=== PATIENT | female | born 1985 | race American Indian/Alaskan Native ===

== ENCOUNTER 2017-01-20 07:31 | Emergency (ER) | payer MEDICAID ==
--- NOTE | 2017-01-20 08:45 | Emergency Department Report ---
- General Chief complaint: Extremity Injury, Lower Stated complaint: ANKIE PAIN Time Seen by Provider: 01/20/17 08:45 Source: patient Mode of arrival: Ambulatory Limitations: No Limitations - History of Present Illness MD complaint: rash - Related Data Allergies Allergy/AdvReac Type Severity Reaction Status Date / Time iodine Allergy Anaphylaxis Verified 01/20/17 08:11 shellfish derived Allergy Anaphylaxis Verified 01/20/17 08:11 Abscess [facility]il [facility] Chief Complaint: Extremity Injury, Lower Stated Complaint: ANKIE PAIN Time Seen by Provider: 01/20/17 08:45 Allergies/Adverse Reactions: Allergies Allergy/AdvReac Type Severity Reaction Status Date / Time iodine Allergy Anaphylaxis Verified 01/20/17 08:11 shellfish derived Allergy Anaphylaxis Verified 01/20/17 08:11 ED Review of Systems ROS: Stated complaint: ANKIE PAIN Other details as noted in HPI ED Past Medical Hx - Past Medical History Previous Medical History?: No - Surgical History Past Surgical History?: Yes Additional Surgical History: X 2 - Social History Smoking Status: Current Every Day Smoker Substance Use Type: None ED Physical Exam - General Limitations: No Limitations Critical care attestation.: If time is entered above; I have spent that time in minutes in the direct care of this critically ill patient, excluding procedure time. ED Disposition Condition: Stable
[2017-01-20] MEDS ORDERED: MOTRIN PO ONE (11:05)
--- NOTE | 2017-01-20 11:25 | Emergency Department Report ---
ED Lower Extremity HPI - General Chief Complaint: Extremity Injury, Lower Stated Complaint: ANKIE PAIN Time Seen by Provider: 01/20/17 08:45 Source: patient Mode of arrival: Ambulatory Limitations: No Limitations - History of Present Illness Initial Comments: 31-year-old female past medical history none presents with complaint of right ankle pain and swelling status post trip and fall. Patient denies any lacerations no other injury sustained difficulty walking due to pain and right ankle MD Complaint: ankle injury, foot injury Onset/Timin -: days(s) Injury: Ankle: Right, Foot: Right Type of Injury: inversion Place: home Severity: moderate Severity scale (0 -10): 6 Improves With: immobilization Worsens With: weight bearing, movement Context: fall Associated Symptoms: snap/pop sensation, swelling, able to partially bear weight - Related Data Allergies Allergy/AdvReac Type Severity Reaction Status Date / Time iodine Allergy Anaphylaxis Verified 01/20/17 08:11 shellfish derived Allergy Anaphylaxis Verified 01/20/17 08:11 ED Review of Systems ROS: Stated complaint: ANKIE PAIN Other details as noted in HPI Constitutional: denies: chills, fever Eyes: denies: eye pain, eye discharge, vision change ENT: denies: ear pain, throat pain Respiratory: denies: cough, shortness of breath, wheezing Cardiovascular: denies: chest pain, palpitations Endocrine: no symptoms reported Gastrointestinal: denies: abdominal pain, nausea, diarrhea Genitourinary: denies: urgency, dysuria, discharge Musculoskeletal: denies: back pain, joint swelling, arthralgia Skin: denies: rash, lesions Neurological: denies: headache, weakness, paresthesias Psychiatric: denies: anxiety, depression Hematological/Lymphatic: denies: easy bleeding, easy bruising ED Past Medical Hx - Past Medical History Previous Medical History?: No - Surgical History Past Surgical History?: Yes Additional Surgical History: X 2 - Social History Smoking Status: Current Every Day Smoker Substance Use Type: None ED Physical Exam - General Limitations: No Limitations General appearance: alert, in no apparent distress - Head Head exam: Present: atraumatic, normocephalic - Eye Eye exam: Present: normal appearance, PERRL, EOMI - ENT ENT exam: Present: mucous membranes moist - Neck Neck exam: Present: normal inspection - Respiratory Respiratory exam: Present: normal lung sounds bilaterally. Absent: respiratory distress - Cardiovascular Cardiovascular Exam: Present: regular rate, normal rhythm. Absent: systolic murmur, diastolic murmur, rubs, gallop - GI/Abdominal GI/Abdominal exam: Present: soft, normal bowel sounds - Extremities Exam Extremities exam: Present: normal inspection - Expanded Lower Extremity Exam Right Hip exam: Present: normal inspection, full ROM Upper Leg exam: Present: normal inspection, full ROM Knee exam: Present: normal inspection, full ROM Lower Leg exam: Present: normal inspection, full ROM Ankle exam: Present: full ROM, tenderness, swelling Foot/Toe exam: Present: normal inspection, full ROM, tenderness at base of 5th metatarsal Neuro vascular tendon exam: Present: no vascular compromise Gait: Positive: antalgic 1 - Pain and swelling here - Back Exam Back exam: Present: normal inspection - Neurological Exam Neurological exam: Present: alert, oriented X3, CN II-XII intact, abnormal gait - Psychiatric Psychiatric exam: Present: normal affect, normal mood - Skin Skin exam: Present: warm, dry, intact, normal color. Absent: rash ED Course Vital Signs 01/20/17 11:35 Respiratory 18 Rate ED Lower Extremity MDM - Medical Decision Making A/P: Ankle sprain versus ankle fracture 1-while I was waiting for x-ray reports patient samantha stated she no longer wished to wait I encouraged her to wait to make sure that her ankle is not broken patient limped out of the ER stating that she did not wish to wait any longer Critical care attestation.: If time is entered above; I have spent that time in minutes in the direct care of this critically ill patient, excluding procedure time. ED Disposition Clinical Impression: Ankle injury Disposition: SAMANTHA Is pt being admited?: No Condition: Stable Referrals: DYLON DUMAS MD [Primary Care Provider] - 3-5 Days
--- NOTE | 2017-01-20 12:05 | XRay Report ---
RIGHT ANKLE THREE VIEWS: 01/20/17 07:31:00 CLINICAL: Pain and swelling. FINDINGS: The ankle mortise is intact.No fracture or dislocation. Moderate medial and lateral soft tissue swelling. No foreign body or soft tissue air. IMPRESSION: Nonspecific soft tissue edema.
--- NOTE | 2017-01-21 07:31 | XRay Report ---
RIGHT FOOT, 3 views: History: Right foot pain. The bony architecture is intact. Bony alignment is normal. No soft tissue abnormalities are seen. The joint spaces appear preserved. IMPRESSION: Unremarkable right foot.
== END 2017-01-20 12:40 | disposition left against medical advice (07) ==
LOC: ED 07:31
DX: S99.911A Unspecified injury of right ankle, initial encounter (principal); F17.200 Nicotine dependence, unspecified, uncomplicated; Z91.013 Allergy to seafood; Z91.041 Radiographic dye allergy status; W01.0XXA Fall on same level from slipping, tripping and stumbling without subsequent striking against object, initial encounter; Y93.89 Activity, other specified; Y99.8 Other external cause status; Y92.009 Unspecified place in unspecified non-institutional (private) residence as the place of occurrence of the external cause

== ENCOUNTER 2017-01-22 09:06 | Emergency (ER) | payer MEDICAID ==
[2017-01-22 09:36] VITALS: BP 132/92
--- NOTE | 2017-01-22 10:35 | Emergency Department Report ---
Entered by EMANUEL JENSEN, acting as scribe for PRISCILLA MARTEL FNP. ED Lower Extremity HPI - General Chief Complaint: Extremity Injury, Lower Stated Complaint: RT ANKLE PAIN/POSS SPRAIN Time Seen by Provider: 01/22/17 10:14 Source: patient Mode of arrival: Ambulatory Limitations: No Limitations - History of Present Illness Initial Comments: 31 y/o female with no significant PMHx, presents to the ED c/o right ankle pain and swelling secondary to fall that occurred 4 days ago. She states that she was loading boxes into her car when she lost her balance, causing her to fall on the ground. The symptoms are aggravated by weight bearing, and are alleviated by a wrap around the area, icing, and aleve. She denies LOC at the time of the fall, chest pain, SOB, abdominal pain, numbness, and weakness. Noted her physician told her to not take aspirin or motrin due to her gallbladder issues, but she can take OTC aleve. MD Complaint: ankle injury -: days(s) (4 days ago) Injury: Ankle: Right (swelling) Place: home Severity: moderate Improves With: other (icing, wrapping) Worsens With: weight bearing Context: fall (patient was unloading boxes and then lost her balance, causing her to fall) Associated Symptoms: swelling. denies: other (LOC, chest pain, SOB, abdominal pain, ) Treatments Prior to Arrival: other (icing area, partial wrapping,OTC aleve) - Related Data Allergies Allergy/AdvReac Type Severity Reaction Status Date / Time iodine Allergy Anaphylaxis Verified 01/20/17 08:11 shellfish derived Allergy Anaphylaxis Verified 01/20/17 08:11 ED Review of Systems Comment: All other systems reviewed and negative Constitutional: denies: fever Respiratory: denies: cough Cardiovascular: denies: chest pain Gastrointestinal: denies: abdominal pain, nausea, vomiting, diarrhea Musculoskeletal: other (right ankle swelling and pain) Neurological: denies: headache, weakness, numbness, other (LOC) ED Past Medical Hx - Past Medical History Previous Medical History?: No - Surgical History Past Surgical History?: Yes Additional Surgical History: X 2 - Social History Smoking Status: Current Every Day Smoker Substance Use Type: Alcohol, Non Opiate Pain ED Physical Exam - General Limitations: No Limitations - Other Other exam information: GENERAL: The patient is well-developed and well-nourished. Patient is in NAD. HEAD: Normocephalic. Atraumatic. EYES: Extraocular motions are intact, PERRL. EARS: External auditory canals and tympanic membranes clear; hearing grossly intact. NOSE: Normal nasal mucosa with no nasal discharge. THROAT: No erythema, swelling or exudates. NECK: Supple, nontender, without lymphadenopathy. No meningitic signs are noted. CHEST/LUNGS: Clear to auscultation throughout. HEART/CARDIOVASCULAR: Regular rate and rhythm. No murmurs, rubs or gallops. ABDOMEN: Abdomen is soft, nontender. Bowel sounds normoactive. No guarding or rebound tenderness. EXTREMITIES: No cyanosis or clubbing. Right ankle edema and pain. Peripheral pulses intact. Capillary refill less than 2 seconds. NEURO: Alert and oriented x 3. Normal gait. ED Course Vital Signs 01/22/17 09:32 Temperature 98.5 F Pulse Rate 58 L Respiratory 18 Rate Blood Pressure 132/92 O2 Sat by Pulse 100 Oximetry ED Lower Extremity MDM - Medical Decision Making Patient was evaluated by the provider in fast track. 31 y/o female presents complaining of right ankle pain and swelling secondary to ground level fall that occurred 4 days ago. She denies LOC or other injuries. Patient is in no acute distress at this time with normal vital signs. She had a normal right foot x-ray 2 days ago at [facility] and a right ankle x-ray 2 days ago at [facility] showed edema but no acute fracture. Further imaging will not be necessary secondary to imaging that was already done, as well as her exam and Hx. She will be discharged home and is encouraged to follow up with a primary care provider. She is encouraged to return to the emergency room for any worsening symptoms. ED Disposition Clinical Impression: Ankle sprain Qualifiers: Encounter type: initial encounter Involved ligament of ankle: other ligament Laterality: right Qualified Code(s): S93.491A - Sprain of other ligament of right ankle, initial encounter Disposition: DISCHARGED TO HOME OR SELFCARE Is pt being admited?: No Does the pt Need Aspirin: No Condition: Stable Instructions: Ankle Sprain (ED), RICE Therapy (ED) Referrals: PRIMARY MD REID [Primary Care Provider] - 3-5 Days ROGELIO MATOS MD [Staff Physician] - 3-5 Days Forms: Work/School Release Form(ED) Time of Disposition: 10:34 This documentation as recorded by the MIKEY ojnes GRACE,accurately reflects the service I personally performed and the decisions made by TAHMINA carrillo DENETRA L, CORBIN.
== END 2017-01-22 10:56 | disposition home or self-care (01) ==
LOC: ED 09:06
DX: S93.491A Sprain of other ligament of right ankle, initial encounter (principal); F17.200 Nicotine dependence, unspecified, uncomplicated; Z88.9 Allergy status to unspecified drugs, medicaments and biological substances; Z91.013 Allergy to seafood; W19.XXXA Unspecified fall, initial encounter; Y93.9 Activity, unspecified; Y99.9 Unspecified external cause status; Y92.009 Unspecified place in unspecified non-institutional (private) residence as the place of occurrence of the external cause
CPT/HCPCS: 99283